=== PATIENT | male | born 1930 | race Caucasian/White ===

== ENCOUNTER → 2017-01-06 | Outpatient (CLI) | payer OTHER, MEDICARE ==
[~2017-01-06] MED LIST: ASPEC81 PO; ATRINS INH; BUDE0.5S INH; COLE625T PO; FENO160T PO; FURO-85 PO; GFNSR600 PO; GLC/500 PO; LEVA1.25 INH; LSN25 PO; LVQ750 PO; NXM/40 PO; PRED10TA PO; [UNRECOGNIZED DRUG - REMARK] SQ
[2017-01-06 11:42] LABS: ARTERIAL BLOOD GAS BASE EXCESS 2.7 mEq/L (-9-1.8); ARTERIAL BLOOD GAS HCO3 27 mmol/L (19-24); ARTERIAL BLOOD GAS PO2 87 mm/Hg (80-95); ARTERIAL BLOOD GAS pH 7.45 (7.35-7.45); BASO % 0.3 %; BASO ABS # 0.04 K/uL (0-0.2); COMPLETE YES; EOS % 1.1 %; HEMATOCRIT 44.5 % (42-52); IG% 1.5 %; LYMPH % 7.4 %; LYMPH ABS # 1.05 K/uL (1.2-3.4); MEAN CELL VOLUME 88.5 fL (80-100); MEAN CORPUSCULAR HEMOGLOBIN 27.6 pg (25-34); MEAN CORPUSCULAR HGB CONC 31.2 g/dl (32-36); MEAN PLATELET VOLUME 10.1 fL (7.4-10.4); MONO % 3.7 %; PLATELET COUNT 245 K/uL (130-400); RED BLOOD COUNT 5.03 M/uL (4.7-6.1); WHITE BLOOD COUNT 14.15 K/uL (4.8-10.8)
[2017-01-06 11:50] LABS: ALLEN TEST POS (POS)
[2017-01-06 11:52] LABS: PARTIAL THROMBOPLASTIN RATIO 0.9; PROTHROMBIN TIME (PATIENT) 10.8 SECONDS (9.0-12.0)
[2017-01-06 11:55] LABS: O2 ADMINISTRATION 2L
[2017-01-06 12:02] LABS: ALT/SGPT 24 U/L (12-78); AST/SGOT 15 U/L (15-37); BLOOD UREA NITROGEN 20 mg/dl (7-18); BUN/CREATININE RATIO 13.6 (10-20); CALCIUM 8.9 mg/dl (8.5-10.1); CARBON DIOXIDE 26 mmol/L (21-32); CHLORIDE 106 mmol/L (98-107); GLUCOSE 152 mg/dl (70-99); POTASSIUM 4.5 mmol/L (3.5-5.1); SODIUM 141 mmol/L (136-145)
--- NOTE | 2017-01-06 12:03 | DIAGNOSTIC IMAGING REPORT ---
CHEST CT WITHOUT CONTRAST CT DOSE: 503.04 mGycm HISTORY: Dyspnea J44.9 Chronic obstructive pulmonary [id number] Acute bronchiti TECHNIQUE: Multiaxial CT images of the chest were performed without contrast. COMPARISON: 10/01/2010 FINDINGS: Diffuse emphysematous change. Apical bulla stable from the prior study. Mild interstitial change considered to be chronic interstitial change and or fibrosis. This is stable. Several scattered calcified granulomas also stable. No new or interval process. Several small mediastinal nodes unchanged. Significant and/or bulky adenopathy is not appreciated. Thoracic aorta is normal in course and caliber. Small hepatic hypodensity stable from the prior study. IMPRESSION: 1. Stable emphysematous change. 2. Stable baseline interstitial and/or parenchymal fibrotic change. 3. Stable granulomatous change. 4. No acute or interval process compared to the prior exam. Electronically signed by: Jair Kwan M.D. 01/06/2017 12:02 PM Dictated Date/Time: 01/06/2017 11:58 AM
[2017-01-06 12:05] LABS: ALB/GLOB RATIO 1.2 (0.9-2); ALKALINE PHOSPHATASE 59 U/L (45-117)
== END | disposition home or self-care (01) ==
LOC: C.CTS 10:39
PROVIDERS: ATTEND Internal Medicine Pulmonary Disease
DX: R06.02 Shortness of breath (principal); J44.0 Chronic obstructive pulmonary disease with (acute) lower respiratory infection

== ENCOUNTER 2017-01-19 08:07 | Day surgery (SDC) | payer OTHER, MEDICARE ==
[~2017-01-19] VITALS: Ht 175.3 cm; Wt 100.0 kg
[2017-01-19] VITALS (13 sets, daily range): BP systolic 106–133; BP diastolic 52–81; PULSE 90–99; TEMP 36.8–37.5; O2SAT 94–99; Ht 175.3 cm; Wt 100.0 kg
[~2017-01-19 08:07] MED LIST changes: -[UNRECOGNIZED DRUG - REMARK] SQ
[2017-01-19] MEDS ORDERED: LEVALBUTEROL 1.25MG/3ML NEB INH ONE (08:08)
[2017-01-19] MEDS ORDERED: MIDAZOLAM HCL 1 MG/ML 2ML VIAL IV ONE (08:08)
[2017-01-19] MEDS ORDERED: GLC/500 PO (08:56)
[2017-01-19] MEDS ORDERED: [UNRECOGNIZED DRUG - REMARK] SQ (08:59)
--- NOTE | 2017-01-19 09:01 | History & Physical Bridge Note ---
H&P Re-Evaluation Bridge Note: I have examined the patient, reviewed the History & Physical and in the interval since the performance of the History & Physical I have noted the following changes of clinical significance: No changes noted
--- NOTE | 2017-01-19 09:02 | Procedure Note ---
Pre-Mod Sedation Assessment General Date of Moderate Sedation: Jan 19, 2017. Pre-Sedation Airway Assessment Smoking Status: Former Smoker Mallampati Classification: Class II ASA Classification: Class II Procedure Planning Contraindications-for Mod Sed: None Yes Notes The planned sedation has been discussed with the patient and consent obtained. I have identified the patient, determined the appropriateness of sedation and have assessed the patient immediately prior to the procedure. All medicine(s) and interventions are by my order.
[2017-01-19] MEDS ORDERED: NURSING VERBAL MED ORDER ONE ×2 (09:30→10:45)
[2017-01-19] MEDS ORDERED: METHYLPREDNISOLONE 80 MG in SYRINGE 0 ML IV ONE (09:45)
[2017-01-19] MEDS ORDERED: MIDAZOLAM HCL 5 MG/ML 1 ML VIAL IV ONE (10:45)
--- NOTE | 2017-01-19 12:36 | Discharge Instructions ---
Discharge Instructions Date of Service Jan 19, 2017. Admission Reason for Admission: Copd, Sob, Bronchitis Discharge Discharge Diagnosis / Problem: COPD, Bronchitis Discharge Goals Goal(s): Learn about illness, Diagnostic testing Activity Recommendations Activity Limitations: resume your previous activity . Instructions / Follow-Up Instructions / Follow-Up ACTIVITY RECOMMENDATIONS: * Rest today, resume normal activity tomorrow. * Do not drive today. SPECIAL CARE INSTRUCTIONS: * Call your physician if you experience any chest or shoulder pain, fever, coughing, spitting up blood (more than 2 teaspoons) or excessive shortness of breath. * Remove dressing from IV site (where needle was placed into the vein) after 2 hours. Apply a warm, moist compress to site if irritation occurs. Call physician if site becomes red or painful to touch. * You may eat 4 hours after the completion of your procedure * Resume all usual medications as previously directed FOLLOW UP VISIT: * Keep any scheduled doctor appointments. Current Hospital Diet Patient's current hospital diet: Discharge Diet Recommended Diet: Regular Diet Procedures Procedures Performed: Bronchoscopy Pending Studies Studies pending at discharge: yes List of pending studies: Cultures and biopsy results if performed Medical Emergencies . Who to Call and When: Medical Emergencies: If at any time you feel your situation is an emergency, please call 911 immediately. . Non-Emergent Contact Non-Emergency issues call your: Primary Care Provider . . "Provider Documentation" section prepared by Petr Cheng PA-C. . VTE Core Measure Inpt VTE Proph given/why not?: Treatment not indicated (Same day procedure)
--- NOTE | 2017-01-19 19:05 | OPERATIVE REPORT ---
DATE OF OPERATION: 01/19/2017 PROCEDURE: Fiberoptic bronchoscopy with bronchoalveolar lavage. INDICATIONS: Severe COPD/chronic mucopurulent bronchitis refractory to outpatient therapy. ANESTHESIA PREOPERATIVELY: None. ANESTHESIA DURING PROCEDURE: 1 mg IV Versed, 20 mL 2% Xylocaine spray above and below the cords, 4% viscous Xylocaine intranasally. PROCEDURE IN DETAIL: Fiberoptic bronchoscope was inserted into the right naris with minimal difficulty and passed to the level of the true vocal cords. The cords appeared to approximate normally with phonation without evidence for lesions or paralysis. The area was anesthetized with 2% Xylocaine spray. Scope was then introduced in the trachea and right and left tracheobronchial tree. 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 The right main stem bronchus was explored initially after the rome was noted to be sharp, no endobronchial lesions were seen. Right upper lobe of the apical posterior and anterior segments, bronchus intermedius, right middle lobe of medial and lateral segments and all basilar segments, right lower lobe were free of endobronchial lesions with a copious amount of mucopurulent secretion lavaged from all lobar and segmental bronchi until clear. Mucus pitting with bronchial crypts and clefts were seen throughout the right tracheobronchial tree. Left tracheobronchial tree was explored, and copious amount of mucopurulent secretion was lavaged from all lobar segments until clear. Left upper lobe of the apical-posterior and anterior segments, lingular subdivision and left lower lobe were free of endobronchial lesions down to subsegmental bronchi. The procedure was terminated. The patient was given a nebulizer treatment with Xopenex 1.25 mg and transferred to the medical treatment unit hemodynamically stable with no further signs of respiratory compromise. We will await microbiological and cytologic examination of the bronchial washings. I attest to the content of the Intraoperative Record and any orders documented therein. Any exception s are noted below.
[2017-01-21 10:54] LABS: HERPES SIMPLEX CULT SOURCE OTHER-R & L BRONCH W; HERPES SIMPLEX VIRUS CULT NOT ISOLATED (NOT ISOLATED)
== END 2017-01-19 13:05 | disposition home or self-care (01) ==
LOC: C.ACU 08:07
PROVIDERS: ATTEND Internal Medicine Pulmonary Disease
DX: J44.9 Chronic obstructive pulmonary disease, unspecified (principal); J39.8 Other specified diseases of upper respiratory tract; I10 Essential (primary) hypertension; Z99.81 Dependence on supplemental oxygen; Z87.891 Personal history of nicotine dependence; Z79.899 Other long term (current) drug therapy

== ENCOUNTER 2017-08-14 07:35 | Day surgery (SDC) | payer OTHER, MEDICARE ==
[~2017-08-14] VITALS: Ht 180.3 cm; Wt 91.0 kg
[2017-08-14] VITALS (8 sets, daily range): BP systolic 93–119; BP diastolic 50–75; PULSE 73–78; TEMP 36.5–37; O2SAT 92–99; Ht 180.3 cm; Wt 91.0 kg
[~2017-08-14 07:35] MED LIST changes: -BUDE0.5S INH; -LVQ750 PO; +[UNRECOGNIZED DRUG - REMARK] SQ
--- NOTE | 2017-08-14 09:06 | Pre Sedation Assessment ---
Pre Sedation Assessment General Date of Sedation: Aug 14, 2017. Vital Signs Past 12 Hours Date Time Temp Pulse Resp B/P (MAP) Pulse Ox O2 Delivery O2 Flow Rate FiO2 08/14/17 08:18 36.5 76 20 119/63 (81) 95 Nasal Cannula 2 Pre-Sedation Airway Assessment Smoking Status: Former Smoker Hx of Sleep Apnea: No Short Thick Neck: No Thyro-mental Distance: > 3 Finger Breadths Oral Cavity: WNL Mallampati Classification: Class II ASA Classification: Class II NPO Status Date of Last Intake of Fluids: Aug 13, 2017 Time of Last Intake of Fluids: 2099 Date of Last Intake of Solids: Aug 13, 2017 Time of Last Intake of Solids: 2099 Procedure Planning Contraindications for Sedation: None Current Medications Reviewed: Yes Notes The planned sedation has been discussed with the patient. Informed Consent was obtained. I have identified the patient, determined the appropriateness of sedation and have assessed the patient immediately prior to the procedure. All medicine(s) and interventions are by my order.
--- NOTE | 2017-08-14 09:46 | Post Sedation Assessment ---
Post Sedation Assessment General Date of Sedation Aug 14, 2017. Vital Signs: Vital Signs Past 12 Hours Date Time Temp Pulse Resp B/P (MAP) Pulse Ox O2 Delivery O2 Flow Rate FiO2 08/14/17 09:35 75 16 125/71 99 Oxymask 6 08/14/17 09:30 81 16 136/81 99 Oxymask 6 08/14/17 09:25 78 17 119/73 99 Oxymask 6 08/14/17 09:20 73 18 122/74 100 Oxymask 6 08/14/17 09:17 79 18 135/71 100 Oxymask 6 08/14/17 08:18 36.5 76 20 119/63 (81) 95 Nasal Cannula 2 Post Procedure Recovery Score Activity: (2) Moves 4 extremities * Respiration: (2) Deep breath/cough Circulation: (2) +/-20% PreAnes Value Consciousness: (1) Arouseable (by name) Oxygen Saturation: (1) O2 needed for >90% Post Anesthesia Score: 8 Post Sedation Plan On clinical assessment, the patient appears to have tolerated the sedation without complications. Patient is recovering as anticipated. Patient will continue to be monitored by nursing and may be discharged when sedation discharge criteria are met per below protocol. Upon Completions of procedure and additional 15 minutes continue every 5 minute vital signs and the P.A.R. score; then discharge to a Phase I or Fast Track to Phase II per the following guidelines: * Discharge Patient to appropriate Phase II area if PAR is 8 or greater or return to pre- procedure baseline. The post - procedure orders will be as directed. * If PAR score is less than 8 or not return to pre-procedure baseline then patient will follow Phase I monitoring till PAR is reached for Phase II. The Phase I may be done in procedure room or may call to secure a Phase I area. * If naloxone or flumazenil are used for reversal, hold in Phase I for an additional 60 -120 minutes before discharge to Phase II. Please call the Sedation Physician to re-evaluate and complete post-note for discharge to Phase II area. Do NOT discharge from procedure sedation or Phase 1 until post- sedation evaluation note is complete by procedure /sedation MD Sedation Discharge Instructions to be given to the patient at discharge to home.
--- NOTE | 2017-08-14 09:48 | Discharge Instructions ---
Discharge Instructions Date of Service Aug 14, 2017. Admission Reason for Admission: Copd, Shortness Of Breath, Acute Bronchitis Discharge Discharge Diagnosis / Problem: Chronic Mucopurulent Bronchitis Discharge Goals Goal(s): Therapeutic intervention Activity Recommendations Activity Limitations: resume your previous activity Lifting Limitations: none Exercise/Sports Limitations: none May Resume Sexual Activity: when tolerated Shower/Bathe: no limitations Driving or Machine Use: no limitations . Instructions / Follow-Up Instructions / Follow-Up ACTIVITY RECOMMENDATIONS: * Rest today, resume normal activity tomorrow. * Do not drive today. SPECIAL CARE INSTRUCTIONS: * Call your physician if you experience any chest or shoulder pain, fever, coughing, spitting up blood (more than 2 teaspoons) or excessive shortness of breath. * Remove dressing from IV site (where needle was placed into the vein) after 2 hours. Apply a warm, moist compress to site if irritation occurs. Call physician if site becomes red or painful to touch. FOLLOW UP VISIT: * Keep any scheduled doctor appointments. Current Hospital Diet Patient's current hospital diet: regular Discharge Diet Recommended Diet: Regular Diet Fluid Restriction: None Procedures Procedures Performed: BRONCHOSCOPY Pending Studies Studies pending at discharge: no Medical Emergencies . Who to Call and When: Medical Emergencies: If at any time you feel your situation is an emergency, please call 911 immediately. . 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 . "Provider Documentation" section prepared by Ruy Dubon. . VTE Core Measure Inpt VTE Proph given/why not?: Treatment not indicated
[2017-08-14] MEDS ORDERED: LEVALBUTEROL 1.25MG/3ML NEB INH ONE (09:50)
[2017-08-14] MEDS ORDERED: LIDOCAINE 4% INH SOLN 4 ML BTL TOP ONE (09:50)
[2017-08-14] MEDS ORDERED: OXYMETAZOLINE HCL 0.05% NA SPR 15 ML BTL ONE (09:50)
[2017-08-14] MEDS ORDERED: MIDAZOLAM HCL 5 MG/ML 1 ML VIAL IV ONE (09:50)
[2017-08-14] MEDS ORDERED: LIDOCAINE HCL 2% LOCAL 50ML VIAL INSTIL ONE (09:50)
[2017-08-14] MEDS ORDERED: LIDOCAINE VISCOUS 2% 100ML TOP ONE (09:50)
--- NOTE | 2017-08-14 10:04 | OPERATIVE REPORT ---
DATE OF OPERATION: 08/14/2017 PROCEDURE: Fiberoptic bronchoscopy with bronchoalveolar lavage. INDICATIONS: Persistent cough refractory to outpatient therapy. ANESTHESIA PREOPERATIVELY: None. ANESTHESIA DURING PROCEDURE: 2 mg IV Versed, 20 mL 2% Xylocaine spray above and below the cords, 4% viscous Xylocaine intranasally. DESCRIPTION OF PROCEDURE: Fiberoptic bronchoscope was inserted into the left naris with minimal difficulty and passed to the level of the true vocal cords. The cords approximated normally with phonation without evidence for lesions or paralysis. The area was anesthetized with 2% Xylocaine spray and the scope was then introduced in the trachea and right and left tracheobronchial tree. The rome was sharp. 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 Severe inflammatory mucosal change was seen throughout the right tracheobronchial tree. The right upper lobe, the apical posterior, anterior segments, bronchus intermedius, right middle lobe and the medial and lateral segments and all basilar segments right lower lobe were found to be free of endobronchial lesions. Each lobar segment and segmental bronchus was copiously lavaged with normosol and the aspirate sent for appropriate studies. Bronchial crypts and clefts were visible throughout the right tracheobronchial tree. Left tracheobronchial tree was explored and a moderate degree of EDAC was seen involving the left mainstem bronchus at the level of the rome. The scope was entered into the left mainstem bronchus. The left upper lobe, the apical-posterior and anterior segments and lingula subdivision as well as the basilar segments of left lower lobe showed copious amount of mucopurulent secretion that was lavaged until clear and a moderate degree of global inflammatory mucosal change was seen. Bronchial crypts and clefts were also seen throughout the left tracheobronchial tree and no endobronchial lesions were seen. Each lobar segment was copiously lavaged with normosol and the aspirate sent for appropriate studies. No brushings or biopsies were attempted were deemed necessary. The procedure was terminated. The patient was given a nebulizer treatment with Xopenex 1.25 mg and transferred to the medical treatment unit hemodynamically stable with no signs of respiratory compromise. Will await microbiological and cytologic examination of the bronchial washings. I attest to the content of the Intraoperative Record and any orders documented therein. Any exception s are noted below.
[2017-08-18 12:12] LABS: HERPES SIMPLEX VIRUS CULT NOT ISOLATED (NOT ISOLATED)
== END 2017-08-14 12:05 | disposition home or self-care (01) ==
LOC: C.ACU 07:35
PROVIDERS: ATTEND Internal Medicine Pulmonary Disease
DX: J44.9 Chronic obstructive pulmonary disease, unspecified (principal); J96.10 Chronic respiratory failure, unspecified whether with hypoxia or hypercapnia; Z99.81 Dependence on supplemental oxygen; Z90.49 Acquired absence of other specified parts of digestive tract; Z90.79 Acquired absence of other genital organ(s); Z87.891 Personal history of nicotine dependence; Z79.52 Long term (current) use of systemic steroids; Z79.82 Long term (current) use of aspirin; Z82.49 Family history of ischemic heart disease and other diseases of the circulatory system